=== PATIENT | female | born 1980 | race Caucasian/White ===

== ENCOUNTER → 2018-03-20 | Outpatient (CLI) | payer SELFPAY | END | disposition home or self-care (01) | LOC: PREOP 05:41 | PROVIDERS: ATTEND Surgery | DX: Z01.818 Encounter for other preprocedural examination (principal) ==

== ENCOUNTER 2018-03-23 09:14 | Day surgery (SDC) | payer OTHER ==
[~2018-03-23] VITALS: Ht 175.3 cm; Wt 65.8 kg
[2018-03-23] MEDS ORDERED: NS IV 500 ML 500 ML ONE (09:34)
[2018-03-23] MEDS ORDERED: NS IV 500 ML 500 ML IV PRN (09:50)
--- OUTSIDE RECORDS SUMMARY | 2018-03-23 09:50 | XMS REPORT | Continuity of Care Document ---
Demographics x Preferred Language Unknown Marital Status Unknown Scientologist Affiliation Unknown Race Unknown Ethnic Group Unknown Author Author [facility] Organization [facility] Address Unknown Phone Unavailable Allergies Active Description Code Type Severity Reaction Onset Reported/Identified Relationship to Patient Clinical Status Yes Penicillins Drug Allergy N/A N/A Confirmed or Verified Yes PENICILLINS PENICILLINS SEVERE Medications Medication Packaging Start Date Stop Date Route Dosage Sig FAMOTIDINE VIAL INJ 20 MG/2CC (PEPCID VIAL) MG 07/20/2016 07/20/2016 ONCE&2300 DIPHENHYDRAMINE VIAL INJ 50 MG/CC (BENADRYL VIAL) MG 07/20/2016 07/20/2016 PRN ONCE METHYLPREDNISOLONE VIAL INJ 125 MG/2CC (SOLU-MEDROL VIAL) MG 07/20/2016 07/20/2016 ONCE&2300 Problems Date Dx Coded Attending Type Code Diagnosis Diagnosed By 08/04/2013 AUBREY NEAL 640.93 HEM EARLY PREG-ANTEPART 08/04/2013 AUBREY NEAL 651.03 TWIN -ANTEPART 08/04/2013 AUBREY NEAL V91.03 TWIN GEST-2 PLAC/2 SAC 07/20/2016 Elvira Wilson 708.9 UNSPECIFIED URTICARIA 07/20/2016 Elvira Wilson L50.9 URTICARIA, UNSPECIFIED Procedures Code [place] [address] ROUTINE VENIPUNCTURE 08/04/2013 41169 OB US >/=14 WKS, SNGL FETUS 08/04/2013 06622 OB US >/=14 WKS, ADDL FETUS 08/04/2013 87715 PLACENTA ALPHA MICRO IG C/V 08/04/2013 77484 CHORIONIC GONADOTROPIN TEST 08/04/2013 64746 COMPLETE CBC W/AUTO DIFF WBC 08/04/2013 71994 BLOOD TYPING, RH (D) 08/04/2013 74058 EMERGENCY DEPT VISIT 08/04/2013 19555 EMERGENCY DEPT VISIT 08/04/2013 Results Test Result Range CBC WITH DIFF - 08/04/13 00:00 BASO% 0.2 % 0-2 EOS% 1.7 % 0-7.0 HCT 36.2 % 36.9-47.0 HGB 12.3 G/DL 12.0-16.0 LYMPH% 14.6 % 20-40 MCH 31.5 PG 27-31 MCHC 34.0 G/DL 33-37 MCV 92.6 FL 81-99 MONO% 6.6 % 0-10.0 MPV 10.5 FL 7.3-10.4 NEUTRO% 76.9 % 40-70 PLT 245 10^3u 130-400 RBC 3.9 10^6u 4.2-5.4 RDW 12.4 % 11.5-15.5 WBC 12.6 10^3u 4.8-10.8 NEUTRO# 9.7 10^3u 1.5-7.5 LYMPH# 1.8 10^3u 0.9-4.0 MONO# 0.8 10^3u 0-0.8 EOS# 0.2 10^3u 0-0.6 BASO# 0.0 10^3u 0-0.1 BHCG - 08/04/13 00:00 HCG- Quantitative 22981 MIUML 0-5 RH TYPE - 08/04/13 00:00 RH P MEMBRANE RUPTURE - 08/04/13 00:00 FETMEMR P Negative Encounters ACCT No. Visit Date/Time Discharge Status Pt. Type Provider Facility Loc./Unit Complaint [id number] 08/04/2013 17:48:00 08/04/2013 20:40:00 DIS Emergency AUBREY NEAL [facility] EMR [id number] 04/24/2013 00:00:00 Document Registration [id number] 12/03/2017 12:43:14 12/03/2017 23:59:59 CLS Outpatient [id number] 07/20/2016 22:48:00 07/20/2016 23:40:00 DIS Outpatient Elvira Wilson [id number] 07/20/2016 23:17:30 Document Registration [id number] 06/05/2017 09:45:00 06/05/2017 23:59:59 CLS Outpatient [facility]EROY LAC[facility]
--- OUTSIDE RECORDS SUMMARY | 2018-03-23 09:50 | XMS REPORT ---
Author Author BRENDON MARTINEZ Organization [facility] Address [address] [place] [address] Care Team Providers Care Genetics Physician Name Role Phone BRENDON MARTINEZ Unavailable PROBLEMS Unknown Problems ALLERGIES No Information ENCOUNTERS Encounter Location Date Diagnosis [facility] [address] [id number] [address] May, Viral URI J06.9 [facility] [address] [place], [place] [id number] [address] Dec, Visit for TB skin test Z11.1 [place] [address] [id number] [address] Nov, Encounter for immunization Z23 [facility] [address] [place], [place] [id number] [address] Aug, Encounter for immunization Z23 IMMUNIZATIONS No Known Immunizations SOCIAL HISTORY Never Assessed REASON FOR VISIT TB skin test-MALA Carvalho PLAN OF CARE Activity Details Follow Up 48-72 hours Reason: VITAL SIGNS MEDICATIONS No Known Medications RESULTS No Results PROCEDURES Procedure Date Ordered Result Body Site TB INTRADERMAL 2017-01-21 N/A TB INTRADERMAL TEST Jan 21, 2017 INSTRUCTIONS MEDICATIONS ADMINISTERED No Known Medications
--- OUTSIDE RECORDS SUMMARY | 2018-03-23 09:50 | XMS REPORT ---
Author Author BRENDON MARTINEZ Organization [facility] Address [address] [place] [address] Care Team Providers Care Rocket Assembly Operator Name Role Phone BRENDON MARTINEZ Unavailable PROBLEMS Unknown Problems ALLERGIES No Information ENCOUNTERS Encounter Location Date Diagnosis [facility] [id number], [place] [address] May, Viral URI J06.[id number] [address] Dec, Visit for TB skin test Z11.1 [id number], [place] [address] Nov, Encounter for immunization Z23 [facility] [address] [place], [place] [id number] [address] Aug, Encounter for immunization Z23 IMMUNIZATIONS Vaccine Route Administration Date Status MMR SC Subcutaneous December 10, 2016 Administered SOCIAL HISTORY Never Assessed REASON FOR VISIT Immunization(s) STeposte [facility] PLAN OF CARE VITAL SIGNS MEDICATIONS No Known Medications RESULTS No Results PROCEDURES Procedure Date Ordered Result Body Site MMR VACCINE, SC December 10, 2016 SINGLE IMMUNIZATION ADMIN December 10, 2016 INSTRUCTIONS MEDICATIONS ADMINISTERED No Known Medications
--- OUTSIDE RECORDS SUMMARY | 2018-03-23 09:50 | XMS REPORT | CCD ---
Author Author Zoraida Stanley MD, [facility] Address [address] [place] [address] Phone Care Team Providers Care Trauma Doctor Name Role Phone PP Unavailable CCM Unavailable Summary Purpose Interface Exchange Insurance Providers Payer name Policy type / Coverage type Covered green party ID Effective Begin Date Effective End Date [facility] Commercial Insurance [id number] Unknown Family history Sister Diagnosis Age At Onset Diabetes mellitus Type 1 Unknown Father Diagnosis Age At Onset Alcoholism Unknown Social History Social History Element Codes Description Effective Dates Marital status Unknown Calin 12/05/2017 Number of children Unknown 3 12/05/2017 Employment Unknown Currently employed cheer gymnastics coach/student 12/05/[address]: 21624502 Current every day smoker 12/05/2017 Number of years using tobacco Unknown 3 12/05/2017 Number of cigarettes/day Unknown 10 ( Half a pack) 12/05/2017 Alcohol history Unknown occasionally drinks alcohol 12/05/2017 Allergies, Adverse Reactions, Alerts Substance Reaction Codes Entered Date Inactivated Date Status * OTHER REACTION - SEE ANSWER BOX anaphylaxis Unknown 2017 No Inactive Date Active Penicillin anaphylaxis Unknown 12/05/2017 No Inactive Date Active Past Medical History Illness Codes Condition Status Onset Date Resolved Date Hemorrhage of anus and rectum ICD-9: 569.3 ICD-10: K62.5 Active 03/18/2018 Unknown Other hemorrhoids ICD- 9: 455.8 ICD-10: K64.8 Active 03/18/2018 Unknown Generalized anxiety disorder ICD-9: 300.02 ICD-10: F41.1 Active 12/05/2017 Unknown Problems Condition Codes Effective Dates Condition Status Hemorrhage of anus and rectum ICD-9: 569.3 ICD-10: K62.5 03/18/2018 Active Other hemorrhoids ICD- 9: 455.8 ICD-10: K64.8 03/18/2018 Active Generalized anxiety disorder ICD-9: 300.02 ICD-10: F41.1 12/05/2017 Active Medications Medication Codes Instructions Start Date Stop Date Status Fill Instructions Anusol-HC 25 mg rectal suppository RxNorm: 3698462 1 Suppository RTL TID x 2 days , then BID x 2 days, then as needed 03/18/2018 No Stop Date Active Protonix 40 mg tablet,delayed release RxNorm: 804435 1 Tablet(s) PO daily 03/18/2018 04/16/2018 Active Celexa 40 mg tablet RxNorm: 043092 1 Tablet(s) PO daily 201706/02/2018 Active Xanax 0.25 mg tablet RxNorm: 546237 1 Tablet(s) PO QDAY PRN No Stop Date Active Celexa 20 mg tablet RxNorm: 037467 1 Tablet(s) PO PRN No Start Date 12/04/2017 Inactive Medication Administered No Medication Administered data Immunizations No Immunization data Assessments Condition Codes Effective Dates Hemorrhage of anus and rectum ICD-10: K62.5 ICD-9: 569.3 03/18/2018 Other hemorrhoids ICD-10: K64.8 ICD-9: 455.8 03/18/2018 Generalized anxiety disorder ICD-10: F41.1 ICD-9: 300.02 12/05/2017 Reason For Visit Reason For Visit Effective Dates Notes fatigue 03/18/2018 anxiety 12/05/2017 Results Observation Observation Code Item Item Code Result Date Comp Metabolic Jmg554 NA 140 mEq/L 03/18/2018 Comp Metabolic Vwc654 K 4.0 mEq/L 03/18/2018 Comp Metabolic Qde688 CL 104 mEq/L 03/18/2018 Comp Metabolic Bkv138 CO2 29.0 mEq/L 03/18/2018 Comp Metabolic Zzn747 ANION GAP 11 03/18/2018 Comp Metabolic Oju789 GLUCOSE 74 mg/dL 03/18/2018 Comp Metabolic Hmc656 Creat 0.8 mg/dL 03/18/2018 Comp Metabolic Dnm249 eGFR 87 ml/min/1.73m2 03/18/2018 Comp Metabolic Oyb104 BUN 13 mg/dL 03/18/2018 Comp Metabolic Tla209 B/C Ratio 16.5 Ratio 03/18/2018 Comp Metabolic Xqh170 CALCIUM 10.1 mg/dL 03/18/2018 Comp Metabolic Fcs828 ALK PHOS 71 U/L 03/18/2018 Comp Metabolic Rha578 AST(SGOT) 12 U/L 03/18/2018 Comp Metabolic Mwf996 ALT(SGPT) 12 U/L 03/18/2018 Comp Metabolic Mob098 BILI T 0.3 mg/dL 03/18/2018 Comp Metabolic Ndz190 ALBUMIN 4.5 g/dL 03/18/2018 Comp Metabolic Nam086 TPRO 6.4 g/dL 03/18/2018 Comp Metabolic Cqq762 GLOB 1.9 g/dL 03/18/2018 Comp Metabolic Dkz640 A/G Ratio 2.3 Ratio 03/18/2018 Comp Metabolic Mua089 Osmo 278 mOsmo 03/18/2018 Cbc With Differential Ord2 WBC 8.42 K/ul 03/18/2018 Cbc With Differential Ord2 RBC 4.34 M/ul 03/18/2018 Cbc With Differential Ord2 HGB 14.1 g/dl 03/18/2018 Cbc With Differential Ord2 Neut% 51.6 % 03/18/2018 Cbc With Differential Ord2 HCT 41.8 % 03/18/2018 Cbc With Differential Ord2 MCV 96.3 fl 03/18/2018 Cbc With Differential Ord2 Lymph% 36.5 % 03/18/2018 Cbc With Differential Ord2 MCH 32.5 pg 03/18/2018 Cbc With Differential Ord2 [place]% 9.0 % 03/18/2018 Cbc With Differential Ord2 MCHC 33.7 pg 03/18/2018 Cbc With Differential Ord2 Eos% 2.7 % 03/18/2018 Cbc With Differential Ord2 PLT 277 K/ul 03/18/2018 Cbc With Differential Ord2 Baso% 0.2 % 03/18/2018 Cbc With Differential Ord2 RDW 12.6 % 03/18/2018 Cbc With Differential Ord2 Neut ABS# 4.34 K/ul 03/18/2018 Cbc With Differential Ord2 Lymph ABS# 3.07 K/ul 03/18/2018 Cbc With Differential Ord2 [place]in[place] ABS# 0.8 K/ul 03/18/2018 Cbc With Differential Ord2 Eos ABS# 0.2 K/ul 03/18/2018 Cbc With Differential Ord2 Baso ABS# 0.0 K/ul 03/18/2018 Review of Systems System Result Effective Dates Constitutional No recent illness 2017 Constitutional No chills 03/18/2018 Constitutional No diaphoresis 03/18/2018 Constitutional No fever 03/18/2018 Eyes No eye erythema 03/18/2018 Ears/Nose/Throat/Neck No nasal discharge 03/18/2018 Cardiovascular No chest pain/pressure Cardiovascular No dyspnea 03/18/2018 Respiratory No cough 03/18/2018 Respiratory No chest congestion 2017 Gastrointestinal No abdominal pain 2017 Gastrointestinal No constipation 2017 Gastrointestinal No diarrhea 03/18/2018 Gastrointestinal gastroesophageal reflux 03/18/2018 Gastrointestinal No hematemesis 2017 Gastrointestinal hematochezia 03/18/2018 Gastrointestinal melena 03/18/2018 Gastrointestinal No nausea 03/18/2018 Gastrointestinal No vomiting 03/18/2018 Musculoskeletal No joint complaint 2017 Dermatologic No rash 03/18/2018 Neurologic No alteration of consciousness 03/18/2018 Neurologic No mental status change 2017 Constitutional No recent illness 2017 Constitutional No anorexia 12/05/2017 Constitutional No night sweats 2017 Constitutional No chills 12/05/2017 Constitutional No diaphoresis 12/05/2017 Constitutional fatigue 12/05/2017 Constitutional No fever 12/05/2017 Constitutional No insomnia 12/05/2017 Constitutional No malaise 12/05/2017 Constitutional weight loss 12/05/2017 Constitutional No weight gain 12/05/2017 Eyes No eye discharge 12/05/2017 Eyes No eye erythema 12/05/2017 Ears/Nose/Throat/Neck No dizziness 2017 Ears/Nose/Throat/Neck No headache 2017 Cardiovascular No chest pain/pressure Cardiovascular No dyspnea 12/05/2017 Cardiovascular No edema 12/05/2017 Respiratory No cough 12/05/2017 Gastrointestinal No abdominal pain 2017 Gastrointestinal No constipation 2017 Gastrointestinal No diarrhea 12/05/2017 Genitourinary/Nephrology No dysuria 12/05 Musculoskeletal joint complaint 2017 Dermatologic No rash 12/05/2017 Neurologic No alteration of consciousness 12/05/2017 Psychiatric anxiety 12/05/2017 Endocrine No dry or coarse skin 2017 Physical Exam Exam Name System Name Item Name Status Result Effective Dates Notes Full Exam - General 1994 Constitutional general appearance Overall: in no acute distress 03/18/2018 None Full Exam - General 1994 Constitutional general appearance Overall: well developed 03/18/2018 None Full Exam - General 1994 Constitutional general appearance Overall: well nourished 03/18/2018 None Full Exam - General 1994 Eyes conjunctiva /eyelids Overall: eyelids normal 03/18/2018 None Full Exam - General 1994 Eyes conjunctiva /eyelids Overall: cornea clear 03/18/2018 None Full Exam - General 1994 Eyes conjunctiva /eyelids Overall: conjunctiva clear 03/18/2018 None Full Exam - General 1994 Ears/Nose/Throat oral cavity/pharynx/larynx Overall: oral mucosa clear 03/18/2018 None Full Exam - General 1994 Ears/Nose/Throat lips/teeth/gingiva Overall: benign lips 03/18/2018 None Full Exam - General 1994 Respiratory respiratory effort/rhythm Overall: normal rate 03/18/2018 None Full Exam - General 1994 Respiratory respiratory effort/rhythm Overall: no retractions 03/18/2018 None Full Exam - General 1994 Respiratory auscultation Overall: breath sounds clear bilaterally 03/18/2018 None Full Exam - General 1994 Cardiovascular auscultation of heart Overall: normal heart sounds 03/18/2018 None Full Exam - General 1994 Cardiovascular auscultation of heart Overall: regular rate 03/18/2018 None Full Exam - General 1994 Abdomen abdominal exam Overall: normal bowel sounds 03/18/2018 None Full Exam - General 1994 Musculoskeletal head and neck Overall: head atraumatic 03/18/2018 None Full Exam - General 1994 Musculoskeletal gait and station Overall: normal station 03/18/2018 None Full Exam - General 1994 Musculoskeletal gait and station Overall: normal gait 03/18/2018 None Full Exam - General 1994 Neurologic cranial nerves Overall: crainial nerves 2 - 12 grossly intact 03/18/2018 None Full Exam - General 1994 Psychiatric orientation/consciousness Overall: oriented to person, place and time 03/18/2018 None Full Exam - General 1994 Psychiatric mood and affect Overall: normal mood and affect 03/18/2018 None Full Exam - General 1994 Psychiatric appearance Overall: well-groomed, good eye contact 03/18/2018 None Full Exam - General 1994 Abdomen abdominal exam Lower quadrant: tender to palpation 03/18/2018 None Full Exam - General 1994 Abdomen abdominal exam Lower quadrant: dull pain 03/18/2018 None Full Exam - General 1994 Abdomen abdominal exam Lower quadrant: no guarding 03/18/2018 None Full Exam - General 1994 Abdomen abdominal exam Lower quadrant: no rebound tenderness 03/18/2018 None Full Exam - General 1994 Abdomen abdominal exam Lower quadrant: soft 03/18/2018 None Full Exam - General 1994 Abdomen abdominal exam Upper quadrant: non-tender to palpation 03/18/2018 None Full Exam - General 1994 Abdomen abdominal exam Upper quadrant: no guarding 03/18/2018 None Full Exam - General 1994 Abdomen abdominal exam Upper quadrant: no rebound tenderness 03/18/2018 None Full Exam - General 1994 Abdomen abdominal exam Upper quadrant: soft 03/18/2018 None Full Exam - General 1994 Abdomen abdominal exam Epigastric: tender to palpation 03/18/2018 None Full Exam - General 1994 Abdomen abdominal exam Epigastric: dull pain 03/18/2018 None Full Exam - General 1994 Abdomen abdominal exam Epigastric: no guarding 03/18/2018 None Full Exam - General 1994 Abdomen abdominal exam Epigastric: no rebound tenderness 03/18/2018 None Full Exam - General 1994 Abdomen abdominal exam Epigastric: soft 03/18/2018 None Full Exam - General 1994 Constitutional general appearance Overall: well developed 12/05/2017 None Full Exam - General 1994 Constitutional general appearance Overall: in no acute distress 12/05/2017 None Full Exam - General 1994 Constitutional general appearance Overall: well nourished 12/05/2017 None Full Exam - General 1994 Psychiatric orientation/consciousness Overall: oriented to person, place and time 12/05/2017 None Full Exam - General 1994 Neurologic cranial nerves Overall: crainial nerves 2 - 12 grossly intact 12/05/2017 None Full Exam - General 1994 Integument inspection of skin Overall: few scattered moles, no gross abnormalities 12/05/2017 None Full Exam - General 1994 Musculoskeletal gait and station Overall: normal gait 12/05/2017 None Full Exam - General 1994 Musculoskeletal gait and station Overall: normal station 12/05/2017 None Full Exam - General 1994 Musculoskeletal head and neck Overall: head atraumatic 12/05/2017 None Full Exam - General 1994 Lymphatic neck nodes Overall: anterior cervical chain benign 12/05/2017 None Full Exam - General 1994 Lymphatic neck nodes Overall: posterior cervical chain benign 12/05/2017 None Full Exam - General 1994 Abdomen abdominal exam Overall: no tenderness 12/05/2017 None Full Exam - General 1994 Abdomen abdominal exam Overall: normal bowel sounds 12/05/2017 None Full Exam - General 1994 Cardiovascular auscultation of heart Overall: regular rate 12/05/2017 None Full Exam - General 1994 Cardiovascular auscultation of heart Overall: normal heart sounds 12/05/2017 None Full Exam - General 1994 Cardiovascular auscultation of heart Overall: no murmurs 12/05/2017 None Full Exam - General 1994 Cardiovascular extremities Overall: no clubbing 12/05/2017 None Full Exam - General 1994 Respiratory auscultation Overall: breath sounds clear bilaterally 12/05/2017 None Full Exam - General 1994 Respiratory respiratory effort/rhythm Overall: no retractions 12/05/2017 None Full Exam - General 1994 Respiratory respiratory effort/rhythm Overall: normal rate 12/05/2017 None Full Exam - General 1994 Neck thyroid Overall: normal size None Full Exam - General 1994 Ears/Nose/Throat otoscopic exam Overall: external auditory canals clear 12/05/2017 None Full Exam - General 1994 Ears/Nose/Throat otoscopic exam Overall: tympanic membranes clear 12/05/2017 None Full Exam - General 1994 Ears/Nose/Throat oral cavity/pharynx/larynx Overall: oral mucosa clear 12/05/2017 None Full Exam - General 1994 Eyes conjunctiva /eyelids Overall: conjunctiva clear 12/05/2017 None Full Exam - General 1994 Eyes pupils and irises Overall: pupils equal, round, reactive to light and accomodation 12/05/2017 None Procedures No Procedures data Vital Signs Date Vital 03/18/2018 Blood Pressure 1: 110/62 Code : 8480-6 BMI: 20.8 Code : 35409-0 Heart Rate 1 : 57 bpm Height: 5'9" SpO2: 98% Weight: 142 lbs 12/05/2017 Blood Pressure 1: 122/70 Code : 8480-6 BMI: 20.5 Code : 05319-1 Heart Rate 1 : 56 bpm Height: 5'9" SpO2: 99% Weight: 140 lbs Functional Status No Functional Status data History of Present Illness Symptom Name Status Result Effective Date Notes fatigue Limitation on Activities does not limit activities 03/18/2018 None fatigue Onset of Symptom 3 days ago 03/18/2018 None fatigue Frequency of Episodes hourly 03/18/2018 None abnormal bleeding and bruising Location in the gastrointestinal tract 03/18/2018 None abnormal bleeding and bruising Quality bright red blood 03/18/2018 None abnormal bleeding and bruising Quality constant 03/18/2018 None abnormal bleeding and bruising Quality free flowing 03/18/2018 None abnormal bleeding and bruising Onset and Resolution sudden in onset 03/18/2018 None abnormal bleeding and bruising Onset of Symptom 3 days ago 03/18/2018 None anxiety Quality intermittent 12/05/2017 None anxiety Onset and Resolution ongoing 12/05/2017 None anxiety Onset of Symptom _ years ago 12/05/2017 None anxiety Pertinent Findings Denies dizziness 12/05/2017 None anxiety Pertinent Findings Denies dyspnea 12/05/2017 None anxiety Pertinent Findings insomnia 12/05/2017 sometimes anxiety Exacerbating Factors activity 12/05/2017 None anxiety Exacerbating Factors school 12/05/2017 None anxiety Limitation on Activities moderately limits activities 12/05/2017 None anxiety Frequency of Episodes decreasing 12/05/2017 since increase in celexa anxiety Triggers divorce 12/05/2017 from Advance Directives No Advance Directive data Encounters Encounter Performer Location Codes Date EST. PATIENT, LEVEL IV Diagnosis: Hemorrhage of anus and rectum[ICD10: K62.5] Diagnosis: Other hemorrhoids[ICD10: K64.8] [facility] CPT[facility] : 33595 03/18/2018 OFFICE VISIT, NEW - LEVEL 3 Diagnosis: Generalized anxiety disorder[ICD10: F41.1] [facility] CPT-4: 72916 12/05/2017 Plan of Care Planned Activity Notes Codes Status Date Care Plan: Referral Order SNOMED-CT : [id number] Pending 03/19/2018 Appointment: Monae Dutton WPtel: [id number] (30 min) Complex 03/18/2018 Patient Education: Patient Medication Summary Completed 03/18/2018 Appointment: Zoraida [facility] [facility] 12/05/2017 Patient Education: Patient Medication Summary Completed 12/05/2017 Referral: Thaddeus Lopez Referral Initiated Instructions No Instructions
--- OUTSIDE RECORDS SUMMARY | 2018-03-23 09:50 | XMS REPORT | CCD ---
Author Author Zoraida Stanley MD, [facility] Address [address] [place] [address] Phone Care Team Providers Care Type Photography Supervisor Name Role Phone PP Unavailable CCM Unavailable Summary Purpose Interface Exchange Insurance Providers Payer name Policy type / Coverage type Covered libertarian ID Effective Begin Date Effective End Date [facility] Commercial Insurance [id number] Unknown Family history Sister Diagnosis Age At Onset Diabetes mellitus Type 1 Unknown Father Diagnosis Age At Onset Alcoholism Unknown Social History Social History Element Codes Description Effective Dates Marital status Unknown Calin 12/05/2017 Number of children Unknown 3 12/05/2017 Employment Unknown Currently employed cheer assistant track coach/student 12/05/[address]: 27312032 Current every day smoker 12/05/2017 Number of [...] Instructions Anusol-HC 25 mg rectal suppository RxNorm: 2013756 1 Suppository RTL TID x 2 days , then BID x 2 days, then as needed 03/18/2018 No Stop Date Active Protonix 40 mg tablet,delayed release RxNorm: 627642 1 Tablet(s) PO daily 03/18/2018 04/16/2018 Active Celexa 40 mg tablet RxNorm: 444378 1 Tablet(s) PO daily 201706/02/2018 Active Xanax 0.25 mg tablet RxNorm: 361861 1 Tablet(s) PO QDAY PRN No Stop Date Active Celexa 20 mg tablet RxNorm: 042507 1 Tablet(s) PO PRN No Start Date [...] Item Item Code Result Date Comp Metabolic Zph913 NA 140 mEq/L 03/18/2018 Comp Metabolic Apz951 K 4.0 mEq/L 03/18/2018 Comp Metabolic Rxb774 CL 104 mEq/L 03/18/2018 Comp Metabolic Rhm585 CO2 29.0 mEq/L 03/18/2018 Comp Metabolic Ybv417 ANION GAP 11 03/18/2018 Comp Metabolic Amd024 GLUCOSE 74 mg/dL 03/18/2018 Comp Metabolic Gzf796 Creat 0.8 mg/dL 03/18/2018 Comp Metabolic Vsq805 eGFR 87 ml/min/1.73m2 03/18/2018 Comp Metabolic Vdo784 BUN 13 mg/dL 03/18/2018 Comp Metabolic Pik419 B/C Ratio 16.5 Ratio 03/18/2018 Comp Metabolic Epo855 CALCIUM 10.1 mg/dL 03/18/2018 Comp Metabolic Xzq363 ALK PHOS 71 U/L 03/18/2018 Comp Metabolic Utv516 AST(SGOT) 12 U/L 03/18/2018 Comp Metabolic Rex876 ALT(SGPT) 12 U/L 03/18/2018 Comp Metabolic Pfu072 BILI T 0.3 mg/dL 03/18/2018 Comp Metabolic Bky922 ALBUMIN 4.5 g/dL 03/18/2018 Comp Metabolic Wlf857 TPRO 6.4 g/dL 03/18/2018 Comp Metabolic Moo301 GLOB 1.9 g/dL 03/18/2018 Comp Metabolic Rrf196 A/G Ratio 2.3 Ratio 03/18/2018 Comp Metabolic Voi152 Osmo 278 mOsmo 03/18/2018 Cbc With Differential [...] 32.5 pg 03/18/2018 Cbc With Differential Ord2 Borden% 9.0 % 03/18/2018 Cbc With Differential Ord2 [...] 3.07 K/ul 03/18/2018 Cbc With Differential Ord2 Borden ABS# 0.8 K/ul 03/18/2018 Cbc With Differential [...] Code : 8480-6 BMI: 20.8 Code : 72891-3 Heart Rate 1 : 57 bpm Height: 5'9" SpO2: 98% Weight: 142 lbs 12/05/2017 Blood Pressure 1: 122/70 Code : 8480-6 BMI: 20.5 Code : 22849-3 Heart Rate 1 : 56 bpm Height: [...] K64.8] [facility] CPT-4 : 28297 03/18/2018 OFFICE VISIT, NEW - LEVEL 3 Diagnosis: Generalized anxiety disorder[ICD10: F41.1] Zoraida Cannon MD, [facility] CPT-4: 55613 12/05/2017 Plan of Care Planned Activity Notes Codes Status Date Care Plan: Referral Order SNOMED-CT : 053406324 Pending 03/19/2018 Visit Plan: Hemorrhoids - will send RX and check lab due to amount of blood and fatigue - will refer to surgeon for consult - pt is to notify clinic if symptoms do not improve, if they worsen, or with any changes, questions, or concerns. 03/18/2018 Appointment: Monae Dutton WPtel: [address] [place], [place] [phone] (30 min) [facility] 03/18/2018 Patient Education: Patient Medication Summary Completed 03/18/2018 Visit Plan: Anxiety - the patient has uncontrolled anxiety and will benefit from an SSRI on a daily basis to attempt control of the symptoms of anxiety (tachycardia, overwhelming sensations, stress, insomnia, etc ). I also believe that the patient will benefit from very low dose of prn benzodiazepine. Pt is aware of the risks and benefits of treatment with the above medications. 12/05/2017 Appointment: Zoraida Stanley [facility]el[facility] [address] [facility] [place] [place] New Patient 12/05/2017 Patient Education: Patient Medication Summary Completed 12/05/2017 Referral: Thaddeus Lopez Referral Initiated Instructions Comment . Anxiety - the patient has uncontrolled anxiety and will benefit from an SSRI on a daily basis to attempt control of the symptoms of anxiety (tachycardia, overwhelming sensations, stress, insomnia, etc). I also believe that the patient will benefit from very low dose of prn benzodiazepine. Pt is aware of the risks and benefits of treatment with the above medications. Appointment with Dr. Lopez on 03/19 at 11:15 AM . Hemorrhoids - will send RX and check lab due to amount of blood and fatigue - will refer to surgeon for consult - pt is to notify clinic if symptoms do not improve, if they worsen, or with any changes, questions, or concerns.
[2018-03-23] MEDS ORDERED: MIDAZOLAM 2 MG/2 ML (VERSED) VIAL IVP ONE (10:00)
[2018-03-23] MEDS ORDERED: fentaNYL INJECTION 100 MCG/2 ML AMP IVP ONE (10:00)
[2018-03-23] MEDS ORDERED: HURRICAINE EXT TUBE (BENZOCAINE) XX PRN (10:00)
[2018-03-23 10:06] VITALS: BP 107/65
[2018-03-23] MEDS ORDERED: LACTATED RINGERS 1,000 ML IV ONE (10:39)
[2018-03-23] MEDS ORDERED: LACTATED RINGERS 1,000 ML IV SCH (10:45)
[2018-03-23 11:05] VITALS: BP 107/66
[2018-03-23] MEDS ORDERED: PROPOFOL INJECTION 50 ML IV ONE (11:34)
[2018-03-23] MEDS ORDERED: MIDAZOLAM 2 MG/2 ML (VERSED) VIAL ONE (11:36)
--- NOTE | 2018-03-23 12:13 | Endo Procedure Record ---
Endo Procedure Report Date of Procedure Last Colonoscopy: No Mar 23, 2018 Surgeon (s) WILLIAM TOBIN MD Post Procedure/Op Diagnosis EGD: Mild distal gastritis Colonoscopy: Friable mucosa of the sigmoid colon with copious mucus on the surface. Internal hemorrhoids Procedure Performed EGD with antral biopsy for H. pylori Colonoscopy with biopsy of sigmoid colon Description of Procedure Anesthesia Type: Conscious Sedation Specimen(s) collected/removed antral mucosa. Mucosa of sigmoid colon Description of the Procedure indication for the procedures: This lady reported 1 episode of melena and several episodes of rectal bleeding. Therefore, upper endoscopy with concomitant colonoscopy was felt to be reasonable. In addition, she has a significant family history of colon cancer as well. Informed consent was obtained after reviewing the procedures in detail. Description of the procedures: EGD/antral biopsy: she was placed in left lateral decubitus position and her vital signs were monitored. Conscious sedation was achieved using propofol infusion by our POWERHOUSE ELECTRICIAN. The flexible gastroscope was introduced down the esophagus, past the stomach, into the proximal duodenum. Findings: Esophagus: Normal Stomach: Mild distal gastritis. Biopsy for H. pylori was obtained. Duodenum: Normal. She tolerated the procedure well and was turned around in preparation for colonoscopy. Impression: 1 episode of melena. No contributing lesion identified. Colonoscopy/biopsy: Digital rectal examination was unremarkable. The colonoscope was then introduced into the rectum and advanced all the cecum. It was then withdrawn slowly and the mucosa examined in a systematic fashion. Findings: 1. Internal hemorrhoids, the possible source of her bleeding. 2. Slight erythema of the mucosa involving the sigmoid colon with mucus on the surface. There was no césar ulceration. Due to concern about occult colitis, mucosal biopsies were obtained. no polyps were discovered. She tolerated the procedures well and was taken back to the nursing area in a stable condition. Impression: Rectal bleeding. Mucus with slight inflammation of the sigmoid mucosa. Biopsy pending. Copy Copies To 1: JOSE ALEJANDRO EMANUEL MD, XAVIER M MD Mar 23, 2018 12:13
--- NOTE | 2018-03-23 12:16 | Discharge Inst-Simple/Standard ---
Discharge Inst-Standard Discharge Medications New, Converted or Re-Newed RX: Other Patient Instructions/Follow Up Plan of Care/Instructions/FU: we shall call once pathology reports become available. Stool softeners as needed Activity as Tolerated: Yes Discharge Diet: No Restrictions WILLIAM TOBIN MD Mar 23, 2018 12:16
[2018-03-23 13:00] VITALS: BP 124/71
[2018-03-23 13:10] VITALS: BP 124/71
== END 2018-03-23 13:10 | disposition home or self-care (01) ==
LOC: ENDO 09:14
PROVIDERS: ATTEND Surgery
DX: K29.70 Gastritis, unspecified, without bleeding (principal); K64.8 Other hemorrhoids; K63.89 Other specified diseases of intestine; K62.5 Hemorrhage of anus and rectum; K92.1 Melena; Z80.0 Family history of malignant neoplasm of digestive organs; F17.210 Nicotine dependence, cigarettes, uncomplicated
CPT/HCPCS: 84703; 88305

== ENCOUNTER → 2019-03-26 | Outpatient (CLI) | payer BC ==
--- NOTE | 2019-03-26 11:29 | Diagnostic Imaging Report ---
PROCEDURE: CT head without contrast. TECHNIQUE: Multiple contiguous axial images were obtained through the brain without the use of intravenous contrast. Auto Exposure Controls were utilized during the CT exam to meet ALARA standards for radiation dose reduction. INDICATION: Migraine since Friday accompanied by photosensitivity, loss of hearing in the left ear with worsened memory. FINDINGS: There is no intracranial hemorrhage. No focal or generalized cerebral edema. The ventricular system nondilated and nondisplaced. The basilar cisterns are patent. There is no evidence for an elevation of the intracranial pressures. The mastoid air cells, middle ear cavities and visualized external auditory canals appeared symmetric and normal. Partially visualized orbits, paranasal sinuses and calvarium unremarkable. IMPRESSION: Normal CT head. Dictated by: Dictated on workstation # [id number]
== END ==
LOC: RAD 11:06
PROVIDERS: ATTEND Nurse Practitioner Family
DX: H91.92 Unspecified hearing loss, left ear (principal); L56.8 Other specified acute skin changes due to ultraviolet radiation; G43.909 Migraine, unspecified, not intractable, without status migrainosus
CPT/HCPCS: 70450

== ENCOUNTER 2021-10-07 22:32 | Emergency (ER) | payer BC ==
[~2021-10-07] VITALS: Ht 177.8 cm; Wt 82.6 kg
[2021-10-07] MEDS ORDERED: ASPIRIN 81 MG CHEW (CHILDREN'S ASA) PO ONE (22:45)
[2021-10-07] MEDS: NITROGLYCERIN 0.4 MG SL TABS BTL 25'S SL PRN ×2 (22:51→22:59)
[2021-10-07 22:54] LABS: BASOPHILS # (AUTO) 0.1 10^3/uL (0.0-0.1); BASOPHILS % (AUTO) 1 % (0-10); EOSINOPHILS # (AUTO) 0.2 10^3/uL (0.0-0.3); EOSINOPHILS % (AUTO) 3 % (0-10); HEMATOCRIT 37 % (35-52); HEMOGLOBIN 12.9 g/dL (11.5-16.0); LYMPHOCYTES # (AUTO) 3.2 10^3/uL (1.0-4.0); LYMPHOCYTES % (AUTO) 41 % (12-44); MEAN CORPUSCULAR HEMOGLOBIN 32 pg (25-34); MEAN CORPUSCULAR HGB CONC 35 g/dL (32-36); MEAN CORPUSCULAR VOLUME 92 fL (80-99); MEAN PLATELET VOLUME 10.3 fL (9.0-12.2); MONOCYTES # (AUTO) 0.7 10^3/uL (0.0-1.0); MONOCYTES % (AUTO) 9 % (0-12); NEUTROPHILS # (AUTO) 3.6 10^3/uL (1.8-7.8); NEUTROPHILS % (AUTO) 47 % (42-75); PLATELET COUNT 280 10^3/uL (130-400); WHITE BLOOD COUNT 7.8 10^3/uL (4.3-11.0)
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
[2021-10-07 23:13] LABS: CALCIUM 9.3 MG/DL (8.5-10.1)
[2021-10-07 23:14] LABS: TOTAL PROTEIN 6.3 GM/DL (6.4-8.2)
[2021-10-07 23:15] LABS: PROTHROMBIN TIME PATIENT 13.6 SEC (12.2-14.7)
[2021-10-07 23:16] LABS: BILIRUBIN,TOTAL 0.4 MG/DL (0.1-1.0)
[2021-10-07 23:18] LABS: CREATININE SERUM 0.78 MG/DL (0.60-1.30)
[2021-10-07 23:21] LABS: MAGNESIUM 1.6 MG/DL (1.6-2.4)
[2021-10-07 23:29] LABS: CREATINE KINASE MB 0.8 NG/ML (<6.6)
[2021-10-08] MEDS ORDERED: KETOROLAC 30 MG/ML VIAL IVP ONE
[2021-10-08 02:17] VITALS: BP 116/80
--- NOTE | 2021-10-08 06:02 | Diagnostic Imaging Report ---
EXAMINATION: Chest 1 view HISTORY: Chest pain COMPARISON: None available. FINDINGS: Heart size and pulmonary vasculature are normal. The lungs are clear without consolidation, pleural effusion, or pneumothorax. The osseous structures are intact. IMPRESSION: 1. No acute radiographic abnormality in the chest. Dictated by: Dictated on workstation # [id number]
== END 2021-10-08 02:21 | disposition home or self-care (01) ==
LOC: EDUNIT# 22:32 → ER 22:34
DX: R07.2 Precordial pain (principal); Z87.891 Personal history of nicotine dependence; Z32.02 Encounter for pregnancy test, result negative
CPT/HCPCS: 36415; 71045; 80053; 82150; 82550; 82553; 83690; 83735; 83874; 83880; 84484; 84703; 85025; 85379; 85610; 85730; 93005; 93041

== ENCOUNTER 2022-08-29 11:18 | Emergency (ER) | payer OTHER ==
[~2022-08-29] VITALS: Ht 177 cm; Wt 74.8 kg
--- NOTE | 2022-08-29 11:44 | ED Lower Extremity ---
General Chief Complaint: Lower Extremity Stated Complaint: LT KNEE PAIN Nursing Triage Note: pt presents to ED with left knee pain/swelling after it gave out on her 3 days ago. pt reports decreased ROM and inability to perform physical therapy exercises. [facility] and told her to come to ED. pt has had multiple previous surgeries on affected knee. Source: patient Exam Limitations: no limitations History of Present Illness Date Seen by Provider: Aug 29, 2022 Time Seen by Provider: 11:33 Initial Comments 42-year-old female presents to the ED with complaints of left knee pain for the last 3 days. States that she was standing, and her knee gave out on her. Reports when this has happened in the past she usually can use rest, ice, compression, elevation and she usually feels better. Reports she came in today because it is not getting any better. She called her primary, who was unable to see her today, and told her to come to the ER. She has had 2 ACL surgeries on this knee, and a meniscectomy several years ago. Current medical history includes bipolar, which she takes Lamictal for. Allergies and Home Medications Allergies Uncoded Allergies: pcn (Allergy, Severe, anaphalactic, 03/23/18) Patient Home Medication List Home Medication List Reviewed: Yes Hydrocodone/Acetaminophen (Hydrocodone-Acetamin 5-325 mg) 5 Mg-325 Mg Tablet, 1 TAB PO Q4H PRN for PAIN-MODERATE (5-7) Prescribed by: Jhoana Short on 08/29/22 1233 Review of Systems Constitutional: see HPI Past Lqnzcev-Qloayc-Ejnhfr Hx Patient Social History Tobacco Use?: No Substance use?: No Alcohol Use?: No Pt feels they are or have been: No Immunizations Up To Date Tetanus Booster (TDap): Less than 5yrs PED Vaccines UTD: No Influenza Vaccine Up-to-Date: No; Not Current Seasonal Allergies Seasonal Allergies: No Past Medical History Surgery/Hospitalization HX: LEFT KNEE ACL REPAIR X 2 Surgeries: Yes Orthopedic Respiratory: No Cardiac: No Neurological: No Reproductive Disorders: No Female Reproductive Disorders: Denies Sexually Transmitted Disease: No HIV/AIDS: No Genitourinary: No Gastrointestinal: Yes Crohns Disease Musculoskeletal: No Endocrine: No HEENT: No Cancer: No Psychosocial: Yes Anxiety, Depression Integumentary: No Blood Disorders: No Adverse Reaction/Blood Tranf: No Physical Exam Vital Signs Vital Signs - First Documented 08/29/22 11:27 Temp 36.9 Pulse 104 Resp 18 B/P (MAP) 121/85 (97) Pulse Ox 99 O2 Delivery Room Air Capillary Refill : Less Than 3 Seconds Height, Weight, BMI Height: 5'9.00" Weight: 145lbs. 0.0oz. [id number]; 23.00 BMI Method: General Appearance: WD/WN, no apparent distress Neck: supple, normal inspection Cardiovascular: regular rate, rhythm, no edema, no gallop, no JVD, no murmur Respiratory: lungs clear, normal breath sounds, no respiratory distress, no accessory muscle use Knees: left knee pain, left knee soft tissue tenderness, left knee swelling Neurologic/Psychiatric: alert, normal mood/affect Skin: normal color, warm/dry Progress/Results/Core Measures Results/Orders My Orders Orders - JHOANA SHORT APRN Knee, Left, 3 Views (08/29/22 11:38) Vital Signs/I&O 08/29/22 08/29/22 11:27 12:40 Temp 36.9 36.9 Pulse 104 104 Resp 18 18 B/P (MAP) 121/85 (97) 121/85 Pulse Ox 99 99 O2 Delivery Room Air Room Air Blood Pressure Mean: 97 Progress Progress Note : Time: 11:43 Progress Note Patient seen and evaluated, resting comfortably in recliner, no acute distress. Based on exam and symptoms, will obtain a left knee x-ray. Knee joint does not seem to be unstable, will place in knee immobilizer with crutches and discharged with follow-up with orthopedics due to history of multiple surgeries on his knee. 1230 x-ray reviewed. Postoperative changes, no acute abnormality. Degenerative changes with mild joint space narrowing and marginal spurring. Results reviewed with patient. Will discharge with short course of [place]. Discharge structures return precautions provided Diagnostic Imaging Diagonstic Imaging: Xray Plain Films/CT/US/NM/MRI: knee Comments [facility], [place] NAME: HEBERT CAMPOS [facility] REC#: [id number] PT STATUS: REG ER : 1980 PHYSICIAN: JHOANA SHORT APRN ADMIT DATE: 08/29/22/ER Draft Date of Exam:08/29/22 KNEE, LEFT, 3 VIEWS Indication: Left knee popping. Time of Exam: 12:03 PM Three views of the left knee were obtained. Postop changes from ACL repair are identified. Hardware appears to be intact. There is medial compartmental degenerative change with mild joint space narrowing and marginal spurring noted. No fracture, dislocation or effusion is identified. IMPRESSION: Postoperative changes. No acute feature is detected. Dictated on workstation # [id number] Dict: 08/29/22 1222 Trans: 08/29/22 1224 [facility] [id number] Interpreted by: MELISA NAVA MD Electronically signed by: Departure Impression Primary Impression: Knee sprain Disposition: HOME, SELF-CARE Condition: Stable Departure-Patient Inst. Decision time for Depature: 12:33 Referrals: [facility] [place]) Primary Care Physician SHIRA ONTIVEROS MD Patient Instructions: Ligament Injuries in the Knee (DC) Add. Discharge Instructions: Wear immobilizer and use crutches. Continue with rest, ice, compression, elevation. Take norco as needed for severe pain. Taking a 800 mg of ibuprofen every 8 hours with food to help with pain and inflammation. Follow-up with orthopedics. All discharge instructions reviewed with patient and/or family. Voiced understanding. Scripts Hydrocodone/Acetaminophen (Hydrocodone-Acetamin 5-325 mg) 5 Mg-325 Mg Tablet 1 TAB PO Q4H PRN for PAIN-MODERATE (5-7), #15 TAB 0 Refills Prov: JHOANA SHORT APRN 08/29/22 JHOANA SHORT APRN Aug 29, 2022 11:44
--- NOTE | 2022-08-29 12:24 | Diagnostic Imaging Report ---
Indication: Left knee popping. Time of Exam: 12:03 PM Three views of the left knee were obtained. Postop changes from ACL repair are identified. Hardware appears to be intact. There is medial compartmental degenerative change with mild joint space narrowing and marginal spurring noted. No fracture, dislocation or effusion is identified. IMPRESSION: Postoperative changes. No acute feature is detected. Dictated by: Dictated on workstation # [id number]
[2022-08-29] MEDS ORDERED: ACHD5005 PO (12:31)
[2022-08-29 12:40] VITALS: BP 121/85
== END 2022-08-29 12:42 | disposition home or self-care (01) ==
LOC: EDUNIT# 11:18 → ER 11:22
DX: S83.92XA Sprain of unspecified site of left knee, initial encounter (principal); F31.9 Bipolar disorder, unspecified; Z79.899 Other long term (current) drug therapy; Z98.890 Other specified postprocedural states; X58.XXXA Exposure to other specified factors, initial encounter
CPT/HCPCS: 73562

== ENCOUNTER → 2022-09-30 | Outpatient (CLI) | payer OTHER ==
[~2022-09-30] MED LIST: ACHD5005 PO
--- NOTE | 2022-09-30 21:00 | Diagnostic Imaging Report ---
MRI LT LOWER EXT JOINT W/O TECHNIQUE: Multiplanar, multisequence MR imaging of the left knee was performed without contrast. COMPARISON: 08/29/2022 INDICATION: Left knee pain. FINDINGS: MENISCI Medial meniscus: Diffuse free edge truncation throughout the medial meniscus could be due to partial meniscectomy versus degenerative tearing. The posterior root of the medial meniscus is very thin with a potential near complete radial tear at its insertion. Lateral meniscus: Intact. LIGAMENTS ACL: Prior ACL reconstruction has intact graft. No features of roof impingement of the graft. PCL: Intact. MCL: Intact. LCL: The lateral collateral ligamentous complex is intact. EXTENSOR MECHANISM The extensor mechanism is intact. CARTILAGE Medial compartment: Diffuse full-thickness articular cartilage loss throughout the weightbearing aspect medial compartment. Lateral compartment: Low-grade partial-thickness chondromalacia in the weightbearing aspect of the lateral compartment. Patellofemoral compartment: High-grade partial-thickness chondral fissuring at the central patellar apex. BONE No fracture, stress fracture or osteonecrosis. SOFT TISSUE No knee effusion or Hernadez's cyst. IMPRESSION: 1. Severe osteoarthritis in the medial compartment with a broad region of full-thickness articular cartilage loss. 2. There is degenerative macerated tearing throughout the medial meniscus. A near complete radial tear is likely present near the posterior root. 3. ACL reconstruction is intact. Dictated by: Dictated on workstation # [id number]
== END ==
LOC: RAD 12:56
PROVIDERS: ATTEND Family Medicine
DX: S83.242A Other tear of medial meniscus, current injury, left knee, initial encounter (principal); M17.12 Unilateral primary osteoarthritis, left knee; X58.XXXA Exposure to other specified factors, initial encounter
CPT/HCPCS: 73721

== ENCOUNTER → 2022-10-22 | Outpatient (CLI) | payer OTHER | LOC: ORTHO 11:56 | PROVIDERS: ATTEND Orthopaedic Surgery | DX: M17.12 Unilateral primary osteoarthritis, left knee (principal); Z98.890 Other specified postprocedural states | CPT/HCPCS: 99203 ==

== ENCOUNTER → 2022-11-04 | Outpatient (CLI) | payer OTHER ==
--- NOTE | 2022-11-04 10:34 | Diagnostic Imaging Report ---
Exam: CT left knee without contrast. Date: November 04, 2022. Indication: 42-year-old female, chronic left knee pain. Surgical planning. Comparison: MRI left knee September 30, 2022. Technique: Axial CT images of the knee without contrast were obtained. Coronal and sagittal reformats were obtained and provided. Axial CT images at the level of the hip and ankle were also obtained for measurements of femoral version and tibial torsion and surgical planning. All CT scans use one or more of the following dose optimizing techniques: automated exposure control, MA and/or KvP adjustment based on patient size and exam type or iterative reconstruction. Findings: The patient is status post left anterior cruciate ligament reconstruction. There is chondrocalcinosis. There is moderate medial compartment joint space loss. There are small medial compartment osteophytes. There is no left knee joint effusion. There is no acute fracture. There is no aggressive bone lesion. Impression: 1. Moderate medial compartment osteoarthritis of the left knee without left knee joint effusion. 2. Chondrocalcinosis which has multiple associations including calcium pyrophosphate hydrate deposition disease. No evidence to clearly suggest CPPD arthropathy specifically involving the left knee. Dictated by: Dictated on workstation # [id number]
== END ==
LOC: RAD 09:15
PROVIDERS: ATTEND Orthopaedic Surgery
DX: M17.12 Unilateral primary osteoarthritis, left knee (principal); M11.262 Other chondrocalcinosis, left knee
CPT/HCPCS: 73700

== ENCOUNTER → 2022-11-21 | Outpatient (CLI) | payer OTHER ==
[2022-11-21 10:29] LABS: BASOPHILS % (AUTO) 1 % (0-10); EOSINOPHILS # (AUTO) 0.2 10^3/uL (0.0-0.3); EOSINOPHILS % (AUTO) 3 % (0-10); HEMATOCRIT 39 % (35-52); HEMOGLOBIN 13.3 g/dL (11.5-16.0); LYMPHOCYTES # (AUTO) 2.8 10^3/uL (1.0-4.0); LYMPHOCYTES % (AUTO) 44 % (12-44); MEAN CORPUSCULAR HEMOGLOBIN 32 pg (25-34); MEAN CORPUSCULAR HGB CONC 34 g/dL (32-36); MEAN CORPUSCULAR VOLUME 94 fL (80-99); MEAN PLATELET VOLUME 10.5 fL (9.0-12.2); MONOCYTES # (AUTO) 0.4 10^3/uL (0.0-1.0); MONOCYTES % (AUTO) 6 % (0-12); NEUTROPHILS % (AUTO) 47 % (42-75); PLATELET COUNT 271 10^3/uL (130-400); WHITE BLOOD COUNT 6.4 10^3/uL (4.3-11.0)
[2022-11-21 10:31] LABS: BILIRUBIN,URINE NEGATIVE (NEGATIVE); CLARITY,URINE CLEAR; COLOR,URINE YELLOW; GLUCOSE, URINE (UA) NEGATIVE (NEGATIVE); KETONES,URINE NEGATIVE (NEGATIVE); LEUKOCYTE ESTERASE ,URINE NEGATIVE (NEGATIVE); NITRITE,URINE NEGATIVE (NEGATIVE); PH,URINE 6.5 (5-9); PROTEIN,URINE NEGATIVE (NEGATIVE)
[2022-11-21 10:41] LABS: POTASSIUM 4.3 MMOL/L (3.6-5.0)
[2022-11-21 10:42] LABS: CALCIUM 9.1 MG/DL (8.5-10.1)
[2022-11-21 10:44] LABS: BACTERIA,URINE NEGATIVE /HPF; SQUAMOUS EPITHELIAL CELL,UR RARE /HPF
[2022-11-21 10:46] LABS: CREATININE SERUM 1.03 MG/DL (0.60-1.30)
--- NOTE | 2022-11-21 13:30 | Diagnostic Imaging Report ---
Preoperative evaluation EXAMINATION: Chest 11/21/2022 COMPARISON: 10/07/2021 2 views of the chest FINDINGS: The cardiomediastinal silhouette is unremarkable. The pulmonary vasculature is within normal limits. The lungs and pleural spaces are clear. IMPRESSION: No evidence of an acute cardiopulmonary process. Dictated by: Dictated on workstation # [id number]
== END ==
LOC: ORTHO 09:44
PROVIDERS: ATTEND Orthopaedic Surgery
DX: Z01.810 Encounter for preprocedural cardiovascular examination (principal); Z01.812 Encounter for preprocedural laboratory examination
CPT/HCPCS: 36415; 71046; 80048; 81000; 85025; 99213

== ENCOUNTER 2022-12-09 05:30 | Outpatient (CLI) | payer OTHER ==
[~2022-12-09] VITALS: Ht 177.8 cm; Wt 74.5 kg
[2022-12-09 09:45] LABS: BILIRUBIN,URINE NEGATIVE (NEGATIVE); CLARITY,URINE CLEAR; COLOR,URINE YELLOW; GLUCOSE, URINE (UA) NEGATIVE (NEGATIVE); KETONES,URINE NEGATIVE (NEGATIVE); LEUKOCYTE ESTERASE ,URINE NEGATIVE (NEGATIVE); NITRITE,URINE NEGATIVE (NEGATIVE); PROTEIN,URINE NEGATIVE (NEGATIVE)
[2022-12-09 09:49] LABS: BASOPHILS # (AUTO) 0.1 10^3/uL (0.0-0.1); BASOPHILS % (AUTO) 1 % (0-10); EOSINOPHILS # (AUTO) 0.2 10^3/uL (0.0-0.3); EOSINOPHILS % (AUTO) 3 % (0-10); HEMATOCRIT 40 % (35-52); HEMOGLOBIN 13.7 g/dL (11.5-16.0); LYMPHOCYTES # (AUTO) 2.7 10^3/uL (1.0-4.0); LYMPHOCYTES % (AUTO) 40 % (12-44); MEAN CORPUSCULAR HEMOGLOBIN 32 pg (25-34); MEAN CORPUSCULAR HGB CONC 35 g/dL (32-36); MEAN CORPUSCULAR VOLUME 93 fL (80-99); MEAN PLATELET VOLUME 10.4 fL (9.0-12.2); MONOCYTES # (AUTO) 0.5 10^3/uL (0.0-1.0); MONOCYTES % (AUTO) 7 % (0-12); NEUTROPHILS # (AUTO) 3.3 10^3/uL (1.8-7.8); NEUTROPHILS % (AUTO) 49 % (42-75); PLATELET COUNT 242 10^3/uL (130-400); WHITE BLOOD COUNT 6.7 10^3/uL (4.3-11.0)
[2022-12-09] MEDS ORDERED: TRAM50TA3 PO (09:56)
[2022-12-09] MEDS ORDERED: NF-LAMO200 PO (09:56)
[2022-12-09 09:57] VITALS: BP 135/83
[2022-12-09 09:58] LABS: BACTERIA,URINE FEW /HPF; SQUAMOUS EPITHELIAL CELL,UR 0-2 /HPF
[2022-12-09 10:03] LABS: CALCIUM 9.4 MG/DL (8.5-10.1); CREATININE SERUM 0.94 MG/DL (0.60-1.30); POTASSIUM 3.8 MMOL/L (3.6-5.0)
--- NOTE | 2022-12-09 10:36 | Diagnostic Imaging Report ---
INDICATION: Preoperative evaluation prior to knee arthroplasty. COMPARISON: 11/21/2022. FINDINGS: Frontal and lateral views of the chest demonstrate normal heart size and pulmonary vascularity. The lungs are clear. There are no signs of infiltrate, pleural effusions or pneumothoraces. The visualized osseous structures show no acute abnormalities. IMPRESSION: 1. No acute process. No signs of infiltrates, effusions or pneumothoraces. Dictated by: Dictated on workstation # [id number]
== END 2022-12-09 10:37 ==
LOC: PREOP 05:30
PROVIDERS: ATTEND Orthopaedic Surgery
DX: Z01.818 Encounter for other preprocedural examination (principal); Z11.2 Encounter for screening for other bacterial diseases; M17.12 Unilateral primary osteoarthritis, left knee
CPT/HCPCS: 36415; 71046; 80048; 81000; 85025; 87081; 93005

== ENCOUNTER → 2022-12-31 | Outpatient (CLI) | payer OTHER ==
[~2022-12-31] MED LIST changes: +ASPI-1238 PO; +NF-LAMO200 PO; +OXYC10TA7 PO; +TRAM50TA3 PO
== END ==
LOC: ORTHO 08:55
PROVIDERS: ATTEND Orthopaedic Surgery
DX: Z47.89 Encounter for other orthopedic aftercare (principal); M17.12 Unilateral primary osteoarthritis, left knee; Z96.652 Presence of left artificial knee joint

== ENCOUNTER 2023-01-22 09:18 | Outpatient (RCR) | payer OTHER | END 2023-01-23 | disposition home or self-care (01) | PROVIDERS: ATTEND Orthopaedic Surgery | DX: Z47.1 Aftercare following joint replacement surgery (principal); Z96.652 Presence of left artificial knee joint ==

== ENCOUNTER 2023-01-24 09:55 | Outpatient (RCR) | payer OTHER | END 2023-01-24 10:47 | disposition home or self-care (01) | PROVIDERS: ATTEND Orthopaedic Surgery | DX: Z09 Encounter for follow-up examination after completed treatment for conditions other than malignant neoplasm (principal); M17.12 Unilateral primary osteoarthritis, left knee; Z96.652 Presence of left artificial knee joint ==

== ENCOUNTER → 2023-01-30 | Outpatient (CLI) | payer OTHER ==
--- NOTE | 2023-01-30 11:42 | Diagnostic Imaging Report ---
EXAMINATION: Left knee radiographs, 2 views. COMPARISON: December 16, 2022. HISTORY: 42-year-old female, left knee pain. FINDINGS: There is a left knee prosthesis. There are fixation screws at the level of the proximal tibia and posterior aspect of the distal femur. The hardware is intact. There is no periprosthetic lucency. There is no identified acute fracture. IMPRESSION: 1. Intact left knee prosthesis and additional fixation screws without identified complication. Dictated by: Dictated on workstation # [id number]
== END ==
LOC: ORTHO 10:56
PROVIDERS: ATTEND Orthopaedic Surgery
DX: Z47.89 Encounter for other orthopedic aftercare (principal); M17.12 Unilateral primary osteoarthritis, left knee
CPT/HCPCS: 73560

== ENCOUNTER → 2023-03-13 | Outpatient (CLI) | payer OTHER | LOC: ORTHO 10:56 | PROVIDERS: ATTEND Orthopaedic Surgery | DX: Z47.89 Encounter for other orthopedic aftercare (principal); M17.12 Unilateral primary osteoarthritis, left knee ==

== ENCOUNTER → 2023-04-30 | Outpatient (CLI) | payer OTHER | LOC: ORTHO 11:39 | PROVIDERS: ATTEND Orthopaedic Surgery | DX: M25.562 Pain in left knee (principal); Z96.652 Presence of left artificial knee joint | CPT/HCPCS: 99213 ==